=== PATIENT | female | born 1955 | race Caucasian/White ===

== ENCOUNTER → 2019-03-29 | Outpatient (CLI) | payer BC ==
[2019-03-29 11:54] LABS: HEMATOCRIT 40.8 % (36.0-47.0); HEMOGLOBIN 13.6 g/dl (12.0-15.5)
[2019-03-29 12:14] LABS: INR 1.04; PROTHROMBIN TIME 13.4 SECONDS (11.8-14.0)
[2019-03-29 12:27] LABS: BLOOD UREA NITROGEN 17 MG/DL (7-18); CALCIUM LEVEL 9.6 MG/DL (8.8-10.2); CARBON DIOXIDE LEVEL 25 MEQ/L (21-32); CHLORIDE LEVEL 104 MEQ/L (98-107); CREATININE FOR GFR 0.81 MG/DL (0.55-1.30); GLOMERULAR FILTRATION RATE > 60.0 (>45); GLUCOSE, FASTING 128 MG/DL (70-100); POTASSIUM SERUM 4.6 MEQ/L (3.5-5.1); SODIUM LEVEL 140 MEQ/L (136-145)
--- NOTE | 2019-03-29 13:49 | REP ---
Two-view chest: 03/29/2019. Indication: Preoperative assessment. Comparison: None. Findings: The lungs are clear. There is no pleural effusion or pneumothorax. The cardiomediastinal silhouette is unremarkable. Impression: No acute cardiopulmonary process. Electronically Signed by Gary Zarco DO 03/29/2019 01:41 P
--- NOTE | 2019-03-29 17:55 | ECGEPIP ---
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
== END ==
LOC: M LAB 11:07
PROVIDERS: ATTEND Orthopaedic Surgery Sports Medicine
DX: Z01.818 Encounter for other preprocedural examination (principal); S83.232D Complex tear of medial meniscus, current injury, left knee, subsequent encounter; X58.XXXD Exposure to other specified factors, subsequent encounter; Y92.9 Unspecified place or not applicable; Y93.9 Activity, unspecified; Y99.9 Unspecified external cause status

== ENCOUNTER → 2019-03-30 | Outpatient (CLI) | payer BC ==
--- NOTE | 2019-03-31 08:13 | REP ---
REASON: Possible ulnar nerve abnormality. COMPARISON: None. There are some T2 hypersignal changes in the soft-tissues abutting the posterior cubital tunnel. The ulnar nerve appears slightly enlarged with slight T2 hypersignal within it. The surface of the ulnar nerve within the cubital tunnel does appear slightly irregular. There is slight patchy T2 hypersignal in the common extensor tendon. The common flexor tendon is within normal limits. The radial and ulnar collateral ligaments are intact. There is no elbow joint effusion. The radial ulnar ligament is within normal limits. There is T2 hypersignal within and surrounding the distal biceps tendon just proximal to and at its radial insertion. The marrow signal is within normal limits. IMPRESSION:1. There is evidence of morphologic change and signal change seen in the ulnar nerve as described above. Ulnar neuritis can not be ruled out. There is less than optimal preservation of the fat planes within the cubital tunnel suggestive of inflammatory change. 2. There is evidence of edema and appearance of biceps tendon tear as described above. 3. There is subtle T2 hypersignal in the common extensor tendon. Tendinous strain or even partial tear can not be ruled out. 4. Other findings as described above. Electronically Signed by Stanislav Messer DO 03/31/2019 08:59 A
== END ==
LOC: M RAD 11:06
PROVIDERS: ATTEND Orthopaedic Surgery
DX: S46.112A Strain of muscle, fascia and tendon of long head of biceps, left arm, initial encounter (principal); X58.XXXA Exposure to other specified factors, initial encounter; Y92.9 Unspecified place or not applicable; Y93.9 Activity, unspecified; Y99.9 Unspecified external cause status

== ENCOUNTER → 2019-05-10 | Outpatient (CLI) | payer BC ==
--- NOTE | 2019-05-10 12:44 | REP ---
A PA and lateral chest: Comparison is 03/29/2019. The lung morris are clear. The cardiac size is normal. The ro, mediastinum, and skeletal structures are unremarkable. Impression: Negative PA and lateral chest. There is no interval change. Electronically Signed by Malachi Valera MD 05/10/2019 12:36 P
[2019-05-10 12:52] LABS: BLOOD UREA NITROGEN 19 MG/DL (7-18); CALCIUM LEVEL 8.6 MG/DL (8.8-10.2); CARBON DIOXIDE LEVEL 29 MEQ/L (21-32); CHLORIDE LEVEL 106 MEQ/L (98-107); CREATININE FOR GFR 0.74 MG/DL (0.55-1.30); GLOMERULAR FILTRATION RATE > 60.0 (>45); GLUCOSE, FASTING 90 MG/DL (70-100); SODIUM LEVEL 139 MEQ/L (136-145)
--- NOTE | 2019-05-11 10:56 | ECGEPIP ---
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 Electronically Signed on 05-11-2019 10:56:21 EST by Serafin Zhou
== END ==
LOC: M LAB 11:42
PROVIDERS: ATTEND Orthopaedic Surgery
DX: Z01.818 Encounter for other preprocedural examination (principal); S46.112A Strain of muscle, fascia and tendon of long head of biceps, left arm, initial encounter; X58.XXXA Exposure to other specified factors, initial encounter; Y92.89 Other specified places as the place of occurrence of the external cause; Y93.89 Activity, other specified; Y99.8 Other external cause status; G56.22 Lesion of ulnar nerve, left upper limb; R94.31 Abnormal electrocardiogram [ECG] [EKG]

== ENCOUNTER → 2020-02-08 | Outpatient (CLI) | payer BC | LOC: M LABSMTC 10:15 | PROVIDERS: ATTEND Orthopaedic Surgery | DX: Z01.818 Encounter for other preprocedural examination (principal); Z20.828 Contact with and (suspected) exposure to other viral communicable diseases ==

== ENCOUNTER → 2020-02-10 | Outpatient (CLI) | payer BC ==
--- NOTE | 2020-02-10 21:23 | ECGEPIP ---
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
== END ==
LOC: M EKG 14:07
PROVIDERS: ATTEND Orthopaedic Surgery
DX: S83.242D Other tear of medial meniscus, current injury, left knee, subsequent encounter (principal); W18.30XD Fall on same level, unspecified, subsequent encounter; Y92.9 Unspecified place or not applicable

== ENCOUNTER → 2020-09-28 | Outpatient (CLI) | payer BC ==
--- NOTE | 2020-09-28 16:58 | REP ---
INDICATION: DVT COMPARISON: None. TECHNIQUE: Real time compression and duplex Doppler interrogation of the left lower extremity deep venous system is performed, including the right common femoral vein.Compression of the left peroneal and posterior tibial veins is performed. FINDINGS: The left common femoral, superficial femoral and popliteal veins are fully compressible with transducer pressure and demonstrate normal spontaneous and phasic flow, without evidence of deep venous thrombosis.The right common femoral vein demonstrates no thrombus.The visualized left peroneal and posterior tibial veins demonstrate no thrombus. IMPRESSION: No evidence of deep venous thrombosis of the left lower extremity femoral popliteal venous system.No thrombus in the visualized left peroneal and posterior tibial veins. <Electronically signed by Malachi Paris > 09/28/20 [id number]
== END ==
LOC: M RAD 16:14
PROVIDERS: ATTEND Orthopaedic Surgery
DX: M25.562 Pain in left knee (principal)